=== PATIENT | male | born 1985 | race Caucasian/White ===

== ENCOUNTER 2018-12-22 23:12 | Emergency (ER) | payer BC ==
[~2018-12-22] VITALS: Ht 185.4 cm; Wt 91.0 kg
[2018-12-22] MEDS ORDERED: SODIUM CHLORIDE 0.9% 1,000 ML IV ONE (23:46)
[2018-12-22] MEDS ORDERED: KETOROLAC 30MG/ML VIAL IV STA (23:46)
[2018-12-23] MEDS ORDERED: TETANUS, DIPHTHERIA, PERTUSSIS VAC/PF 0.5ML (>7YR OLD) IM ONE
[2018-12-23] MEDS ORDERED: CLINDAMYCIN 600 MG in DEXTROSE 5% WATER 50 ML IV ONE ×2
[2018-12-23] MEDS ORDERED: CLINDAMYCIN 600MG PREMIX 50 ML IV SCH (00:15)
[2018-12-23 00:26] LABS: CHLORIDE 108 mEq/L (98-107)
[2018-12-23 00:32] LABS: BASOPHILS % 0.7 % (0.0-2.0); EOSINOPHILS % 1.2 % (0.0-5.0); HEMATOCRIT. 45.6 % (42.0-52.0); HEMOGLOBIN. 15.4 g/dL (14.0-18.0); LYMPHOCYTES % 14.8 % (20.0-50.0); MEAN CORPUSCULAR HEMOGLOBIN 29.6 pg (28.0-32.0); MEAN PLATELET VOLUME 9.4 fl (7.4-10.4); MONOCYTES % 7.5 % (2.0-8.0); NEUTROPHILS % 75.8 % (40.0-76.0); PLATELET 249 x1000/uL (130-400); RED BLOOD CELL COUNT 5.18 mill/uL (4.7-6.1); RED CELL DISTRIBUTION WIDTH 13.8 % (11.6-14.6)
[2018-12-23 00:39] LABS: PARTIAL THROMBOPLASTIN TIME 23.3 sec (23.4-31.0)
[2018-12-23 02:04] VITALS: BP 115/81
== END 2018-12-23 02:23 | disposition short-term general hospital (02) ==
LOC: ER 23:12
DX: S82.291B Other fracture of shaft of right tibia, initial encounter for open fracture type I or II (principal); Y08.89XA Assault by other specified means, initial encounter; Y93.89 Activity, other specified; Y92.488 Other paved roadways as the place of occurrence of the external cause
CPT/HCPCS: 36415; 73590; 80053; 85025; 85610; 85730; 90471; 90715; 96365; 96375; 99285; J1885; J3490; J7030; J7060